=== PATIENT | male | born 1965 | race American Indian/Alaskan Native ===

== ENCOUNTER 2016-10-23 10:05 | Emergency (ER) | payer OTHER ==
--- NOTE | 2016-10-23 19:59 | Emergency Department Report ---
ED General Adult HPI - General Chief complaint: Wound/Laceration Stated complaint: WOUND CHECK Time Seen by Provider: 10/23/16 19:33 Source: patient Mode of arrival: Ambulatory Limitations: No Limitations - History of Present Illness Initial comments: Patient comes into the ER today for evaluation of his wound from a circumcision on 10/01/16. Patient states that Dr. Morejon performed the circumcision on said date and has not seen patient since surgery. Patient and states they have called several times trying to get in and see him but his office keeps telling him that they don't have an appointment for him and he does not need to be seen. His office has told patient to come to the ER or to a clinic for evaluation of the wound. Patient notes that the bandaging from the surgery came off when he got home after the surgery and since then he has noticed what he believes is "meat" on the top part of his penis being exposed. Patient has been cleaning wound with Betadine as well as keeping it lathered up with Neosporin. Patient is a diabetic and states his sugars have been running very good. Patient is concerned that there is infection in his circumcision site and it has not been healing properly. Patient denies any pain on urination. - Related Data Previous Rx's Medication Instructions Recorded Last Taken Type Cephalexin [Keflex] 500 mg PO TID #30 capsule 10/23/16 Unknown Rx Mupirocin [Bactroban 2%] 1 applic TP BID #1 tube 10/23/16 Unknown Rx Sulfamethoxazole/Trimethoprim 1 each PO BID #20 tablet 10/23/16 Unknown Rx [Bactrim DS TAB] Allergies Allergy/AdvReac Type Severity Reaction Status Date / Time No Known Allergies Allergy Unverified 10/23/16 10:31 ED Review of Systems ROS: Stated complaint: WOUND CHECK Other details as noted in HPI Constitutional: denies: chills, fever Eyes: denies: eye pain, eye discharge, vision change ENT: denies: ear pain, throat pain Respiratory: denies: cough, shortness of breath, wheezing Cardiovascular: denies: chest pain, palpitations Endocrine: no symptoms reported Gastrointestinal: denies: abdominal pain, nausea, diarrhea Genitourinary: other (open wound to the top of his penis in area of circumcision ). denies: urgency, dysuria, frequency, hematuria, testicular pain, testicular mass Musculoskeletal: denies: back pain, joint swelling, arthralgia Skin: denies: rash, lesions Neurological: denies: headache, weakness, paresthesias Psychiatric: denies: anxiety, depression Hematological/Lymphatic: denies: easy bleeding, easy bruising ED Past Medical Hx - Past Medical History Hx Diabetes: Yes - Surgical History Additional Surgical History: circumsicion - Social History Smoking Status: Never Smoker Substance Use Type: None - Medications Home Medications: Home Medications Medication Instructions Recorded Confirmed Last Taken Type Cephalexin [Keflex] 500 mg PO TID #30 capsule 10/23/16 Unknown Rx Mupirocin [Bactroban 2%] 1 applic TP BID #1 tube 10/23/16 Unknown Rx Sulfamethoxazole/Trimethoprim 1 each PO BID #20 tablet 10/23/16 Unknown Rx [Bactrim DS TAB] ED Physical Exam - General Limitations: No Limitations General appearance: alert, in no apparent distress - Head Head exam: Present: atraumatic, normocephalic - Eye Eye exam: Present: normal appearance - ENT ENT exam: Present: mucous membranes moist - Neck Neck exam: Present: normal inspection - Respiratory Respiratory exam: Present: normal lung sounds bilaterally. Absent: respiratory distress - Cardiovascular Cardiovascular Exam: Present: regular rate, normal rhythm. Absent: systolic murmur, diastolic murmur, rubs, gallop - GI/Abdominal GI/Abdominal exam: Present: soft, normal bowel sounds - Rectal Rectal exam: Present: deferred - exam: Present: circumcision (wound dehiscence noted to site of circumcision on top part of penis. Underlying tissue erythematous with white purulent drainage. No area of obvious abscess requiring drainage at this time. Other areas of circumcision site appeared to be with good wound margin approximation and healing appropriately.). Absent: testicular tenderness, urethral discharge , scrotal swelling, vertical testicular lie - Extremities Exam Extremities exam: Present: normal inspection - Back Exam Back exam: Present: normal inspection - Neurological Exam Neurological exam: Present: alert, oriented X3 - Psychiatric Psychiatric exam: Present: normal affect, normal mood - Skin Skin exam: Present: warm, dry, intact, normal color. Absent: rash ED Course Vital Signs 10/23/16 10:31 Temperature 97.8 F Pulse Rate 87 Respiratory 16 Rate Blood Pressure 129/81 O2 Sat by Pulse 96 Oximetry ED Medical Decision Making - Medical Decision Making Patient is nontoxic and hemodynamically stable. Great amount of time spent with patient reassuring him on his wound evaluation. I informed patient that the incision site has opened them that it does appear to be infected. I also informed him that skin tissue will regrow over the exposed underlying tissue with time but that the only proper way to realign wound margins would be to repeat surgery. Patient is not very happy with that surgeon that performed the procedure and his follow-up care and is hesitant to go back to them. I will give patient another referral to a different urologist for second opinion. At this time I'll start patient on antibiotics and change his appointment to Bactroban. The patient and spouse are in agreement with treatment plan and patient is stable for discharge. Critical care attestation.: If time is entered above; I have spent that time in minutes in the direct care of this critically ill patient, excluding procedure time. ED Disposition Clinical Impression: Postoperative wound dehiscence, Wound infection after surgery Disposition: - TO HOME OR SELFCARE Is pt being admited?: No Does the pt Need Aspirin: No Condition: Good Instructions: Wound Dehiscence (ED), Cellulitis (ED) Prescriptions: Cephalexin [Keflex] 500 mg PO TID #30 capsule Mupirocin [Bactroban 2%] 1 applic TP BID #1 tube Sulfamethoxazole/Trimethoprim [Bactrim DS TAB] 1 each PO BID #20 tablet Referrals: PRIMARY CARE, [Primary Care Provider] - 3-5 Days ELIJAH MARTINEZ MD [Staff Physician] - 3-5 Days (Urology Doctor) Time of Disposition: 20:08
[2016-10-23 22:21] VITALS: BP 131/71
== END 2016-10-23 20:18 | disposition home or self-care (01) ==
LOC: ED 10:05
DX: T81.31XA Disruption of external operation (surgical) wound, not elsewhere classified, initial encounter (principal); T81.4XXA Infection following a procedure, initial encounter; E11.9 Type 2 diabetes mellitus without complications
CPT/HCPCS: 99282

== ENCOUNTER 2017-01-03 12:16 | Emergency (ER) | payer OTHER ==
[2017-01-03 12:55] VITALS: BP 122/85
--- NOTE | 2017-01-03 14:34 | Emergency Department Report ---
ED Back Pain/Injury HPI - General Chief Complaint: Back Pain/Injury Stated Complaint: BACK PAIN Time Seen by Provider: 01/03/17 13:55 Source: patient Limitations: No Limitations - History of Present Illness Initial Comments: This 51-year-old male nontoxic, well nourished in appearance, no acute signs of distress presents to the ED complaining of chronic intermittent upper back pain that radiates to the left shoulder and lower extremity. Patient describes pain as sharp that is intermittent with numbness and tingling sensation. Patient denies any trauma to the region. Denies fever, chills, stiff neck, headache, nausea, vomiting, chest pain. Patient has a history of diabetes. Patient denies any calf pain or tenderness. Denies any allergies. MD Complaint: back pain -: Gradual Similar Symptoms Previously: Yes Radiation: none Severity: mild Severity scale (0 -10): 6 Quality: sharp Consistency: intermittent Improves With: none Worsens With: none Associated Symptoms: denies other symptoms. denies: confusion, weakness, chest pain, numbness, difficulty walking, cough, difficulty urinating, diaphoresis, incontinence, fever/chills, constipation, headaches, abdominal pain, loss of appetite, malaise, nausea/vomiting, rash, seizure, shortness of breath, syncope - Related Data Previous Rx's Medication Instructions Recorded Last Taken Type Cephalexin [Keflex] 500 mg PO TID #30 capsule 10/23/16 Unknown Rx Mupirocin [Bactroban 2%] 1 applic TP BID #1 tube 10/23/16 Unknown Rx Sulfamethoxazole/Trimethoprim 1 each PO BID #20 tablet 10/23/16 Unknown Rx [Bactrim DS TAB] Gabapentin [Neurontin] 100 mg PO Q8HR #30 capsule 01/03/17 Unknown Rx Ibuprofen [Motrin 600 MG tab] 600 mg PO Q8H PRN #30 tablet 01/03/17 Unknown Rx Allergies Allergy/AdvReac Type Severity Reaction Status Date / Time No Known Allergies Allergy Unverified 10/23/16 10:31 ED Review of Systems ROS: Stated complaint: BACK PAIN Other details as noted in HPI Constitutional: denies: chills, fever Eyes: denies: eye pain, eye discharge, vision change ENT: denies: ear pain, throat pain Respiratory: denies: cough, shortness of breath, wheezing Cardiovascular: denies: chest pain, palpitations Endocrine: no symptoms reported Gastrointestinal: denies: abdominal pain, nausea, diarrhea Genitourinary: denies: urgency, dysuria Musculoskeletal: denies: back pain, joint swelling, arthralgia Skin: denies: rash, lesions Neurological: denies: headache, weakness, paresthesias Psychiatric: denies: anxiety, depression Hematological/Lymphatic: denies: easy bleeding, easy bruising ED Past Medical Hx - Past Medical History Hx Diabetes: Yes - Surgical History Additional Surgical History: circumsicion - Social History Smoking Status: Unknown if ever smoked Substance Use Type: None - Medications Home Medications: Home Medications Medication Instructions Recorded Confirmed Last Taken Type Cephalexin [Keflex] 500 mg PO TID #30 capsule 10/23/16 Unknown Rx Mupirocin [Bactroban 2%] 1 applic TP BID #1 tube 10/23/16 Unknown Rx Sulfamethoxazole/Trimethoprim 1 each PO BID #20 tablet 10/23/16 Unknown Rx [Bactrim DS TAB] Gabapentin [Neurontin] 100 mg PO Q8HR #30 capsule 01/03/17 Unknown Rx Ibuprofen [Motrin 600 MG tab] 600 mg PO Q8H PRN #30 tablet 01/03/17 Unknown Rx ED Physical Exam - General Limitations: No Limitations General appearance: alert, in no apparent distress - Head Head exam: Present: atraumatic, normocephalic, normal inspection - Eye Eye exam: Present: normal appearance, PERRL, EOMI. Absent: scleral icterus, conjunctival injection, nystagmus, periorbital swelling, periorbital tenderness Pupils: Present: normal accommodation - ENT ENT exam: Present: normal exam, normal orophraynx, mucous membranes moist, TM's normal bilaterally, normal external ear exam - Neck Neck exam: Present: normal inspection, full ROM. Absent: tenderness, meningismus, lymphadenopathy, thyromegaly - Respiratory Respiratory exam: Present: normal lung sounds bilaterally. Absent: respiratory distress, wheezes, rales, rhonchi, stridor, chest wall tenderness, accessory muscle use, decreased breath sounds, prolonged expiratory - Cardiovascular Cardiovascular Exam: Present: regular rate, normal rhythm, normal heart sounds. Absent: bradycardia, tachycardia, irregular rhythm, systolic murmur, diastolic murmur, rubs, gallop - GI/Abdominal GI/Abdominal exam: Present: soft, normal bowel sounds. Absent: distended, tenderness, guarding, rebound, rigid, diminished bowel sounds - Rectal Rectal exam: Present: deferred - Extremities Exam Extremities exam: Present: normal inspection, full ROM, normal capillary refill. Absent: tenderness, pedal edema, joint swelling, calf tenderness - Expanded Upper Extremity Exam Left General: Present: normal inspection Shoulder Exam: Present: normal inspection, full ROM. Absent: tenderness, swelling, abrasion, laceration, ecchymosis, deformity, crepidus, dislocation, erythema, tenderness over AC joint Upper Arm exam: Present: normal inspection, full ROM. Absent: tenderness, swelling, abrasion, laceration, ecchymosis, deformity, crepidus, dislocation, erythema Elbow exam: Present: normal inspection, full ROM. Absent: tenderness, swelling , abrasion, laceration, ecchymosis, deformity, crepidus, dislocation, erythema, effusion, pain w/ pronation/supination, tenderness over radial head Forearm Wrist exam: Present: normal inspection, full ROM. Absent: tenderness, swelling, abrasion, laceration, ecchymosis, deformity, crepidus, dislocation, erythema, tenderness over anatomical snuff box, pain with axial thumb loading Hand Wrist exam: Present: normal inspection, full ROM. Absent: tenderness, swelling, abrasion, laceration, ecchymosis, deformity, crepidus, dislocation, erythema, amputation, nail avulsion, subungual hematoma Neuro motor exam: Present: wrist extension intact, thumb opposition intact, thumb IP flexion intact, thumb adduction intact, fingers 2-5 abduction intact Neurosensory exam: Present: 2-point discrimination, radial nerve intact, ulnar nerve intact, median nerve intact Vascular: Present: vascular compromise, normal capillary refill, radial pulse, brachial pulse, ulnar pulse - Back Exam Back exam: Present: normal inspection, full ROM. Absent: tenderness, CVA tenderness (R), CVA tenderness (L), muscle spasm, paraspinal tenderness, vertebral tenderness, rash noted - Neurological Exam Neurological exam: Present: alert, oriented X3, CN II-XII intact, normal gait, reflexes normal - Psychiatric Psychiatric exam: Present: normal affect, normal mood - Skin Skin exam: Present: warm, dry, intact, normal color. Absent: rash ED Course Vital Signs 01/03/17 12:50 Temperature 99.7 F H Pulse Rate 80 Respiratory 18 Rate Blood Pressure 122/85 O2 Sat by Pulse 99 Oximetry - Reevaluation(s) Reevaluation #1: 01/03/17 14:34 Patient is speaking in full sentences with no signs of distress noted,. Critical care attestation.: If time is entered above; I have spent that time in minutes in the direct care of this critically ill patient, excluding procedure time. ED Disposition Clinical Impression: Neuropathy, Cervical radiculopathy Disposition: - TO HOME OR SELFCARE Is pt being admited?: No Does the pt Need Aspirin: No Condition: Stable Instructions: Lumbar Radiculopathy (ED), Diabetic Neuropathy (ED), Gabapentin ( By mouth), Ibuprofen (By mouth) Additional Instructions: Follow up with a primary care doctor in 3-5 days or if symptoms worsen and continue return to emergency room as response. Take Gabapentin as prescribed. Do not operate any machinery while taking this medication due to sedation/drowsiness Prescriptions: Gabapentin [Neurontin] 100 mg PO Q8HR #30 capsule Ibuprofen [Motrin 600 MG tab] 600 mg PO Q8H PRN #30 tablet PRN Reason: Pain Referrals: OFELIA REID MD [Primary Care Provider] - 3-5 Days VASQUEZ IVERSON MD [Staff Physician] - 3-5 Days [facility] [Outside] - 3-5 Days [facility] [Outside] - 3-5 Days
== END 2017-01-03 15:45 | disposition home or self-care (01) ==
LOC: ED 12:16
DX: M54.12 Radiculopathy, cervical region (principal); E11.9 Type 2 diabetes mellitus without complications
CPT/HCPCS: 99282